=== PATIENT | male | born 1975 | race Two or more races ===

== ENCOUNTER → 2019-09-10 | Emergency (ER) | payer SELFPAY ==
[~2019-09-10] VITALS: Ht 180.3 cm; Wt 77.1 kg
[~2019-09-10] MED LIST: CLINDAMYCIN 600MG IV 50 ML IV ONE; IOHEXOL 300 MG/ML 100ML BOTTLE IJ ONE; SODIUM CHLORIDE 0.9% 2,000 ML IV ONE; cefTRIAXone 1GM/50ML D5W 50 ML IV ONE
[2019-09-10 10:48] LABS: Basophils # (auto) 0.1 10 ^3/uL (0-0.2); Basophils % (auto) 0.5 % (0.0-2.0); Eosinophils # (auto) 0 10 ^3/uL (0-0.8); Eosinophils % (auto) 0.2 % (0.0-7.0); Hematocrit 44.6 % (41.0-53.0); Hemoglobin 15.1 g/dL (13.5-17.5); Lymphocytes # (auto) 1.2 10 ^3/uL (0.4-5.4); Lymphocytes % (auto) 9.7 % (10.0-50.0); Mean Corpuscular Hemoglobin 31.5 pg (28.0-32.0); Mean Corpuscular Hgb Conc. 33.8 g/dL (32.0-36.0); Mean Corpuscular Volume 93.3 fL (80.0-100.0); Monocytes % (auto) 8.2 % (0.0-12.0); Neutrophils # (auto) 10.3 10 ^3/uL (1.6-8.6); Neutrophils % (auto) 81.4 % (37.0-80.0); Nucleated Red Blood Cells % 0.1 %; Platelet Count (auto) 183 10^3/uL (140-450); Red Blood Cells 4.78 10^6/uL (4.5-5.90); Red Cell Distribution Width 13.6 % (11.8-14.3); White Blood Cell 12.6 10^3/uL (4.4-10.8)
[2019-09-10 11:05] LABS: Albumin 3.3 g/dL (3.4-5.0); Calcium 8.8 mg/dL (8.5-10.1); Potassium 3.8 mmol/L (3.5-5.1)
[2019-09-10 11:09] LABS: Bilirubin, Total 0.9 mg/dL (0.2-1.0); Total Protein 7.2 g/dL (6.4-8.2)
[2019-09-10 12:56] VITALS: BP 121/85
[2019-09-10 13:42] LABS: Amphetamine Screen, Urine POSITIVE (NEGATIVE); Barbiturate Scree,Urine NEGATIVE (NEGATIVE); Benzodiazephine Screen, Urine NEGATIVE (NEGATIVE); Cannabinoid Screen, Urine POSITIVE (NEGATIVE); Cocaine Screen, Urine NEGATIVE (NEGATIVE); Opiate Scree,Urine POSITIVE (NEGATIVE); Phencyclidine Screen, Urine NEGATIVE (NEGATIVE)
== END | disposition home or self-care (01) ==
LOC: ER 10:00
DX: L03.115 Cellulitis of right lower limb (principal); E86.0 Dehydration; F17.210 Nicotine dependence, cigarettes, uncomplicated
CPT/HCPCS: 36415; 73701; 80053; 80307; 85025; 96365; 96368; 99285; J0696; J3490; J7030; Q9967